=== PATIENT | male | born 1965 | race Caucasian/White ===

== ENCOUNTER → 2020-08-27 | Outpatient (CLI) | payer BC ==
--- NOTE | 2020-08-27 18:50 | Diagnostic Imaging Report ---
INDICATION: Left knee pain post injury AP, oblique, and lateral views of the left knee are obtained. No fracture or acute bony abnormality is seen. There is superior patellar spurring. There is mild medial joint space narrowing. There is some chronic appearing irregularity of the tibial tuberosity. There is a small exostosis of the proximal tibia. IMPRESSION: Chronic appearing findings as described above with no acute bony abnormality of the left knee. Dictated by: Dictated on workstation # [id number]
== END ==
LOC: RAD FS 14:07
PROVIDERS: ATTEND Nurse Practitioner
DX: M25.762 Osteophyte, left knee (principal); M25.862 Other specified joint disorders, left knee
CPT/HCPCS: 73562

== ENCOUNTER → 2022-03-10 | Outpatient (CLI) | payer BC ==
--- NOTE | 2022-03-10 16:02 | Diagnostic Imaging Report ---
INDICATION: Right rib pain. TECHNIQUE: 4 radiographs of the right ribs, 3:04 PM. CORRELATION STUDY: None FINDINGS: There is no acute displaced right-sided rib fracture deformity. No bony destructive change. Mildly prominent interstitial markings of the visualized right lung which is otherwise clear. No infiltrate or effusion. No pneumothorax. Advanced degenerative changes of the acromioclavicular joint and, to a lesser degree, the right glenohumeral joint. IMPRESSION: 1. Negative for acute displaced right rib fracture. Dictated by: Dictated on workstation # [id number]
--- NOTE | 2022-03-10 16:03 | Diagnostic Imaging Report ---
INDICATION: ACUTE COUGH. TECHNIQUE: Two view chest 3:00 PM CORRELATION STUDY: None FINDINGS: The heart size, mediastinal configuration and pulmonary vasculature are within normal limits. Lungs demonstrate no infiltrate. Mildly prominent interstitial markings throughout both lung henry. No effusion or pneumothorax. Mildly to moderately advanced degenerative changes of the thoracic spine with thin bridging osteophytes along with anteriorly wedged lower thoracic vertebral body. IMPRESSION: 1. Negative for acute abnormality of the chest. Dictated by: Dictated on workstation # [id number]
== END ==
LOC: RAD FS 14:34
PROVIDERS: ATTEND Nurse Practitioner Family
DX: R07.81 Pleurodynia (principal); R05.9 Cough, unspecified
CPT/HCPCS: 71046; 71100